=== PATIENT | female | born 1940 | race Hispanic/Latino ===

== ENCOUNTER 2017-12-02 08:01 | Outpatient (CLI) | payer MEDICARE ==
[2017-12-02] MEDS ORDERED: DULCOLAX PR ONE (09:16)
--- NOTE | 2017-12-02 10:50 | Fluoroscopy Report ---
DEFAGRAM History: Constipation. Findings: Fiber Technician film of the abdomen demonstrates a normal bowel gas pattern. No rectal ulceration is appreciated. 81 lateral fluoroscopic images were obtained during defecation. There is near complete evacuation of the rectum. A small rectocele is identified which eventually empties. A large enterocele is identified which exerts mass effect on the rectum. No evidence for rectal prolapse. Impression: Small rectocele which appears to empty. Large enterocele.
== END 2017-12-02 08:02 | disposition home or self-care (01) ==
LOC: FLUORO 08:01
PROVIDERS: ATTEND Internal Medicine Gastroenterology
DX: N81.5 Vaginal enterocele (principal); Z88.0 Allergy status to penicillin; Z88.2 Allergy status to sulfonamides
CPT/HCPCS: 74270; Q9963